=== PATIENT | male | born 1985 | race Caucasian/White ===

== ENCOUNTER 2024-05-10 21:37 | Emergency (ER) | payer BC ==
[~2024-05-10] VITALS: Ht 182.9 cm; Wt 147.4 kg
[~2024-05-10 21:37] MED LIST: LISINOPRIL10 MG
[2024-05-10] MEDS ORDERED: SODIUM CHLORIDE FLUSH 10 ML SYR IV PRN (22:00)
[2024-05-10 22:12] LABS: BASOPHILS # (AUTO) 0.1 (0.0-0.1); BASOPHILS % 0.7 % (0.0-1.0); EOSINOPHILS # (AUTO) 0.1 (0.0-0.4); EOSINOPHILS % 0.9 % (0.0-6.0); HEMATOCRIT 48.6 % (38.2-49.6); HEMOGLOBIN 15.8 g/dL (14.0-18.0); LYMPHOCYTES # (AUTO) 3.9 (1.0-3.2); LYMPHOCYTES % 27.8 % (18.0-39.1); MEAN CORPUSCULAR HEMOGLOBIN 28.5 pg (28-32); MEAN CORPUSCULAR HGB CONC 32.5 g/dL (31-35); MEAN CORPUSCULAR VOLUME 87.6 fL (81-99); MONOCYTES % 7.1 % (4.4-11.3); NEUTROPHILS # (AUTO) 8.8 (2.1-6.9); NEUTROPHILS % 63.1 % (38.7-80.0); PLATELET COUNT 369 x10e3/uL (140-360); RED BLOOD COUNT 5.55 x10e6/uL (4.3-5.7); RED CELL DISTRIBUTION WIDTH 12.6 % (11.7-14.4); WHITE BLOOD COUNT 13.97 x10e3/uL (4.8-10.8)
[2024-05-10 22:26] LABS: ALANINE AMINOTRANSFERASE 20 IU/L (0-55); ALBUMIN 3.8 g/dL (3.5-5.0); ALBUMIN/GLOBULIN RATIO 0.9 (0.8-2.0); ALKALINE PHOSPHATASE 85 IU/L (40-150); ANION GAP 15.4 mmol/L (8-16); BILIRUBIN,TOTAL 0.3 mg/dL (0.2-1.2); BLOOD UREA NITROGEN 15 mg/dL (7-26); BUN/CREATININE RATIO 17 (6-25); CALCIUM 9.5 mg/dL (8.4-10.2); CARBON DIOXIDE 23 mmol/L (22-29); CHLORIDE 100 mmol/L (98-107); CREATININE, SERUM 0.89 mg/dL (0.72-1.25); EST GLOMERULAR FILTRATION RATE 114 ML/MIN (>=60); GLUCOSE 97 mg/dL (74-118); SODIUM 135 mmol/L (136-145); TOTAL PROTEIN 7.9 g/dL (6.5-8.1)
[2024-05-10 22:29] LABS: POTASSIUM 3.4 mmol/L (3.5-5.1)
[2024-05-10 22:50] LABS: TROPONIN I < 0.05 ng/mL (0.0-0.40)
[2024-05-10] MEDS ORDERED: IOPAMIDOL 370 MG/ML 100 ML INFUS..BTL INJ ONE (23:26)
[2024-05-11 00:24] VITALS: PULSE 87; RESP 17; TEMP 98.2
[2024-05-11 00:38] VITALS: BP 128/92; PULSE 87; RESP 17; TEMP 98.2; O2SAT 98
== END 2024-05-11 00:39 | disposition home or self-care (01) ==
LOC: ER 21:42
DX: R00.2 Palpitations (principal); R07.89 Other chest pain; R06.00 Dyspnea, unspecified; I10 Essential (primary) hypertension; J45.909 Unspecified asthma, uncomplicated
CPT/HCPCS: 36415; 71260; 80053; 83880; 84484; 85025; 85379; 93005; 94760; 99284; Q9967